=== PATIENT | male | born 1955 | race Caucasian/White ===

== ENCOUNTER → 2020-04-24 08:05 | Outpatient (REF) | payer SELFPAY ==
[2020-04-24 21:23] LABS: HCT 50.4 % (40.0-50.0); HGB 16.9 g/dL (13.5-17.5); MCH 29.8 pg (27.0-33.0); MCHC 33.5 % (32.0-36.0); MCV 88.9 fL (80-95); MPV 10.6 fL (8.0-11.0); Platelet Count 227 10^3/uL (130-400); RBC 5.67 10^6/uL (4.36-5.78); RDW 11.9 % (11.8-14.1); RDW-SD 38.9 fL; WBC 6.04 10^3/uL (4.4-10.8)
[2020-04-24 22:11] LABS: ALT 53 U/L (16-63); AST 25 U/L (15-37); Albumin 3.9 g/dL (3.4-5.0); Alkaline Phosphatase 112 U/L (46-116); Anion Gap 8.4 mmol/L (3-11); BUN 25 mg/dL (7-18); CO2 28.6 mmol/L (21.0-32.0); CREATININE 1.17 mg/dL (0.70-1.30); Calcium 8.8 mg/dL (8.5-10.1); Calculated LDL 94 mg/dL (<100); Chloride 105 mmol/L (98-107); Cholesterol 151 mg/dL (<200); Glucose 97 mg/dL (74-106); HDL Cholesterol 36 mg/dL (40-60); Potassium 4.4 mmol/L (3.5-5.1); Sodium 142 mmol/L (136-145); Total Protein 7.3 g/dL (6.4-8.2); Triglyceride 106 mg/dL (<150)
[2020-04-25 17:43] LABS: PSA, Screening 0.9 ng/mL (0.0-4.5)
[2020-04-27 14:52] LABS: Testosterone, Free 7.13 ng/dL (3.67-13.9); Testosterone, Total 285 ng/dL (240-950)
== END ==
LOC: NCHCN 08:05
PROVIDERS: Visit Provider Family Medicine
DX: Z00.00 Encounter for general adult medical examination without abnormal findings (principal); E29.1 Testicular hypofunction; N40.0 Benign prostatic hyperplasia without lower urinary tract symptoms; Z12.5 Encounter for screening for malignant neoplasm of prostate; Z13.220 Encounter for screening for lipoid disorders
CPT/HCPCS: 80053; 80061; 84153; 84402; 84403; 85027

== ENCOUNTER 2021-08-02 17:25 | Outpatient (REF) | payer SELFPAY ==
[2021-08-02 15:58] LABS: ALT 57 U/L (16-63); AST 29 U/L (15-37); Albumin 3.7 g/dL (3.4-5.0); Alkaline Phosphatase 116 U/L (46-116); Anion Gap 5.8 mmol/L (3-11); BUN 31 mg/dL (7-18); Bilirubin, Total 0.6 mg/dL (0.2-1.0); CO2 30.2 mmol/L (21.0-32.0); CREATININE 1.5 mg/dL (0.70-1.30); Calcium 8.6 mg/dL (8.5-10.1); Calculated LDL 104 mg/dL (<100); Chloride 105 mmol/L (98-107); Cholesterol 164 mg/dL (<200); Estimated GFR 47.27 (mL/min/1.73m2); Glucose 97 mg/dL (74-106); HDL Cholesterol 38 mg/dL (40-60); Potassium 5.1 mmol/L (3.5-5.1); Sodium 141 mmol/L (136-145); Total Protein 7.1 g/dL (6.4-8.2); Triglyceride 112 mg/dL (<150)
[2021-08-02 23:08] LABS: PSA, Screening 0.8 ng/mL (0.0-4.5)
== END 2021-08-02 17:26 | disposition home or self-care (01) ==
LOC: NCHCN 17:25
PROVIDERS: Visit Provider Family Medicine
DX: E29.1 Testicular hypofunction (principal); N40.0 Benign prostatic hyperplasia without lower urinary tract symptoms; Z12.5 Encounter for screening for malignant neoplasm of prostate
CPT/HCPCS: 80053; 80061; 84153

== ENCOUNTER 2022-10-30 09:47 | Outpatient (REF) | payer MEDICARE, SELFPAY ==
[2022-10-30 14:35] LABS: HCT 48.4 % (40.0-50.0); HGB 16.7 g/dL (13.5-17.5); MCH 31.1 pg (27.0-33.0); MCHC 34.5 % (32.0-36.0); MCV 90 fL (80-95); MPV 10.5 fL (8.0-11.0); Platelet Count 222 10^3/uL (130-400); RBC 5.37 10^6/uL (4.36-5.78); RDW 11.9 % (11.8-14.1); RDW-SD 39.4 fL; WBC 6.68 10^3/uL (4.4-10.8)
[2022-10-30 14:54] LABS: ALT 58 U/L (16-63); AST 27 U/L (15-37); Albumin 3.7 g/dL (3.4-5.0); Alkaline Phosphatase 115 U/L (46-116); Anion Gap 4.7 mmol/L (3-11); BUN 30 mg/dL (7-18); Bilirubin, Total 0.9 mg/dL (0.2-1.0); CO2 30.3 mmol/L (21.0-32.0); CREATININE 1.1 mg/dL (0.70-1.30); Calcium 8.9 mg/dL (8.5-10.1); Chloride 104 mmol/L (98-107); Estimated GFR 74.96 (mL/min/1.73m2); Glucose 109 mg/dL (74-106); Potassium 4.6 mmol/L (3.5-5.1); Sodium 139 mmol/L (136-145); TSH (W/Ref FT4) 1.04 uIU/mL (0.36-3.74); Total Protein 7.6 g/dL (6.4-8.2)
== END 2022-10-30 09:48 | disposition home or self-care (01) ==
LOC: NCHCN 09:47
PROVIDERS: Visit Provider Family Medicine
DX: E29.1 Testicular hypofunction (principal); G47.33 Obstructive sleep apnea (adult) (pediatric)
CPT/HCPCS: 80053; 85027; 84443

== ENCOUNTER 2024-03-15 14:04 | Outpatient (REF) | payer SELFPAY ==
[2024-03-15 21:29] LABS: HCT 47.8 % (40.0-50.0); HGB 16.4 g/dL (13.5-17.5); MCH 30.8 pg (27.0-33.0); MCHC 34.3 % (32.0-36.0); MCV 90 fL (80-95); MPV 10.9 fL (8.0-11.0); Platelet Count 244 10^3/uL (130-400); RBC 5.32 10^6/uL (4.36-5.78); RDW 12.1 % (11.8-14.1); RDW-SD 39.5 fL; WBC 8.09 10^3/uL (4.4-10.8)
[2024-03-15 21:55] LABS: ALT 56 U/L (16-63); AST 29 U/L (15-37); Albumin 3.8 g/dL (3.4-5.0); Alkaline Phosphatase 129 U/L (46-116); BUN 25 mg/dL (7-18); Bilirubin, Total 0.71 mg/dL (0.2-1.0); Calcium 9.1 mg/dL (8.5-10.1); Chloride 108 mmol/L (98-107); Estimated GFR 83.01 (mL/min/1.73m2); Glucose 88 mg/dL (74-106); Potassium 4.4 mmol/L (3.5-5.1); Sodium 141 mmol/L (136-145); Total Protein 7.2 g/dL (6.4-8.2)
== END 2024-03-15 14:05 | disposition home or self-care (01) ==
LOC: NCHCN 14:04
PROVIDERS: PCP Family Medicine; Visit Provider Family Medicine
DX: Z01.818 Encounter for other preprocedural examination (principal); C64.1 Malignant neoplasm of right kidney, except renal pelvis
CPT/HCPCS: 80053; 85027

== ENCOUNTER 2024-08-19 09:20 | Outpatient (REF) | payer MEDICARE, SELFPAY ==
[2024-08-19 14:18] LABS: HCT 48.2 % (40.0-50.0); HGB 16.4 g/dL (13.5-17.5); MCH 30.8 pg (27.0-33.0); MCV 90 fL (80-95); MPV 10.3 fL (8.0-11.0); Platelet Count 217 10^3/uL (130-400); RBC 5.33 10^6/uL (4.36-5.78); RDW-SD 39.8 fL; WBC 5.08 10^3/uL (4.4-10.8)
[2024-08-19 14:41] LABS: ALT 48 U/L (16-63); AST 27 U/L (15-37); Albumin 3.8 g/dL (3.4-5.0); Alkaline Phosphatase 127 U/L (46-116); Anion Gap 7.6 mmol/L (3-11); BUN 25 mg/dL (7-18); Bilirubin, Total 0.8 mg/dL (0.2-1.0); CO2 26.4 mmol/L (21.0-32.0); CREATININE 1.3 mg/dL (0.70-1.30); Calcium 9.1 mg/dL (8.5-10.1); Chloride 108 mmol/L (98-107); Estimated GFR 60.59 (mL/min/1.73m2); Glucose 99 mg/dL (74-106); Potassium 4.5 mmol/L (3.5-5.1); Sodium 142 mmol/L (136-145)
== END 2024-08-19 09:21 | disposition home or self-care (01) ==
LOC: NCHCN 09:20
PROVIDERS: PCP Family Medicine; Visit Provider Family Medicine
DX: Z01.818 Encounter for other preprocedural examination (principal)
CPT/HCPCS: 80053; 85027; 87086

== ENCOUNTER 2025-02-28 13:17 | Outpatient (REF) | payer MEDICARE, SELFPAY ==
[2025-02-28 15:02] LABS: HCT 45.4 % (40.0-50.0); HGB 15.4 g/dL (13.5-17.5); MCH 30.7 pg (27.0-33.0); MCHC 33.9 % (32.0-36.0); MCV 90 fL (80-95); MPV 10.4 fL (8.0-11.0); Platelet Count 236 10^3/uL (130-400); RBC 5.02 10^6/uL (4.36-5.78); RDW 12.0 % (11.8-14.1); RDW-SD 39.7 fL; WBC 5.70 10^3/uL (4.4-10.8)
[2025-02-28 15:18] LABS: ALT 45 U/L (16-63); AST 25 U/L (15-37); Albumin 3.7 g/dL (3.4-5.0); Alkaline Phosphatase 127 U/L (46-116); Anion Gap 9.0 mmol/L (3-11); BUN 25 mg/dL (7-18); Bilirubin, Total 0.9 mg/dL (0.2-1.0); CO2 28.0 mmol/L (21.0-32.0); Calcium 8.8 mg/dL (8.5-10.1); Chloride 106 mmol/L (98-107); Estimated GFR 55.09 (mL/min/1.73m2); Glucose 81 mg/dL (74-106); Potassium 4.6 mmol/L (3.5-5.1); Sodium 143 mmol/L (136-145); Total Protein 7.3 g/dL (6.4-8.2)
== END 2025-02-28 13:18 | disposition home or self-care (01) ==
LOC: NCHCN 13:17
PROVIDERS: PCP Family Medicine; Visit Provider Family Medicine
DX: R10.31 Right lower quadrant pain (principal)
CPT/HCPCS: 80053; 85027

== ENCOUNTER 2025-03-03 04:01 | Outpatient (CLI) | payer MEDICARE, SELFPAY ==
--- NOTE | 2025-03-03 | DI.CT_ITS ---
Exam(s) CT ABDOMEN PELVIS W EXAM: CT ABDOMEN PELVIS W CLINICAL HISTORY: RLQ PAIN,R10.31. TECHNIQUE: Imaging Protocol: Axial computed tomography images with coronal and sagittal reformatted images were created and reviewed CONTRAST MATERIAL: Intravenous: Omnipaque 350 Contrast volume:97 ml Oral: yes COMPARISON: CT CT ABDOMEN PELVIS W CONTRAST from 11/04/[address] ABDOMEN (ONLY) W WO CONTRAST from 11/19/2024 FINDINGS: ABDOMEN and PELVIS: Lung Bases: 7 millimeter nodule at the lateral left costophrenic angle. State have increased slightly in size when compared with 2023. No new pulmonary nodules. Liver: Normal density. No suspicious mass. Gallbladder and biliary tract: No radiodense calculus. No wall thickening or pericholecystic fluid. No biliary dilation. Pancreas: Normal density. No abnormal calcifications or inflammatory process. No evidence of mass. Spleen: Normal. Kidneys: Prior arm removal of mass noted at the upper pole of the left kidney. Decreased size of postoperative fluid collection now measuring 4.5 cm in greatest dimension. Status post partial right nephrectomy at the posterior aspect with minimal adjacent fluid. No radiodense stones. No obstructive uropathy. No suspicious masses seen. Adrenal glands: No masses seen. Vasculature: Abdominal aorta non-dilated. Soft tissues: Unremarkable. Bladder: Nearly empty. No gross wall thickening. No calculi. Bowel: Administered oral contrast extends down to the level of the rectum. There is diverticulosis of the descending hand sigmoid colon but no evidence of diverticulitis. No obstruction. No bowel wall thickening. Appendix normal. Peritoneal cavity: No ascites. No focal collection. No mesenteric inflammatory response. No free air. Bones: Unremarkable for age. Reproductive organs: Mildly enlarged. A small nodule is noted at the superior aspect of the prostate. Lymph nodes: No pathologically enlarged lymph nodes. IMPRESSION:: No acute abnormality in the abdomen or pelvis. RADIATION DOSE DELIVERED: Total DLP DATA REPOSITORY: All CT scans at this facility are submitted to the National Radiology Data Registry (NRDR) Dose Index Registry (DIR) with the [employer] ([employer]). RADIATION OPTIMIZATION: All CT scans at this facility use at least one of these dose optimization techniques: automated exposure control; mA and/or kV adjustment per patient size (includes targeted exams where dose is matched to clinical indication); or iterative reconstruction.
[2025-03-03] MEDS: Barium Sulfate 2% W/V-Berry Smoothie 450 ML BTL PO (13:12)
[2025-03-03] MEDS: Barium Sulfate 2% W/V-Creamy Vanilla Smoothie 450 ML BTL PO (13:12)
[2025-03-03] MEDS: Omnipaque 350 MG/ML 100 ML BTL IJ (15:09)
[2025-03-03] MEDS: Normal Saline - Diluent 50 ML VIAL IJ (15:10)
== END 2025-03-03 04:21 ==
LOC: DI 04:01
PROVIDERS: PCP Family Medicine; Visit Provider Family Medicine
DX: R10.31 Right lower quadrant pain (principal)
CPT/HCPCS: 74177; J3490